=== PATIENT | male | born 1945 | race Caucasian/White ===

== ENCOUNTER 2020-01-31 09:14 | Outpatient (CLI) | payer OTHER | END 2020-01-31 23:59 | disposition home or self-care (01) | LOC: RAD 09:14 → EDSTATUS 09:30 → RAD 23:59 | PROVIDERS: ATTEND Radiology Diagnostic Radiology | DX: K80.20 Calculus of gallbladder without cholecystitis without obstruction (principal); K80.81 Other cholelithiasis with obstruction | CPT/HCPCS: 74181 ==